=== PATIENT | male | born 1965 | race African-American/Black ===

== ENCOUNTER 2023-10-17 12:42 | Emergency (ER) | payer MEDICAID ==
[~2023-10-17] VITALS: Ht 177.8 cm; Wt 100.0 kg
[2023-10-17 13:19] VITALS: TEMP 98.5; O2SAT 100
[2023-10-17] MEDS: LIDOCAINE HCL/PF 1% 10 MG/ML 5ML VIAL INFIL ONE (16:05)
[2023-10-17 16:06] VITALS: BP 136/89; PULSE 85; RESP 16
[2023-10-17] MEDS: IBUPROFEN 600MG TABLET PO ONE (16:06)
[2023-10-17] MEDS: BACITRACIN ZINC OINT UDPKT TOP ONE (16:06)
[2023-10-17] MEDS ORDERED: SULF1TAB48 MT (16:23)
== END 2023-10-17 17:26 | disposition home or self-care (01) ==
LOC: ER 14:10
DX: L02.811 Cutaneous abscess of head [any part, except face] (principal)
CPT/HCPCS: 10060; 99283; J3490; Z7610 ×2